=== PATIENT | female | born 1990 ===

== ENCOUNTER 2022-12-09 08:05 | Inpatient (IN) | payer OTHER ==
[2022-12-09] MEDS ORDERED: DINOPROSTONE 10 MG VAGINAL SUPPOSITORY VG ONE (08:41)
[2022-12-09] MEDS ORDERED: BUTORPHANOL TARTRATE 1 MG/ML VIAL IVPUSH PRN (08:42)
[2022-12-09] MEDS ORDERED: PROMETHAZINE HCL 25 MG/1 ML VIAL IVPB ONE (08:42)
[2022-12-09] MEDS ORDERED: ELECTROLYTE-148 SOLN 1,000 ML IV SCH (08:45)
[2022-12-09 10:34] VITALS: BMI 26.4
[2022-12-09] MEDS ORDERED: CITRIC ACID/SODIUM CITRATE 30 ML UNIT-DOSE CUP PO ONE (16:28)
[2022-12-09] MEDS ORDERED: morphine SULFATE/PF 1 MG/2 ML (2cc Syringe - QUVA) ONE (17:11)
[2022-12-09] MEDS ORDERED: IBUPROFEN 800 MG/8 ML IJ IVPB PRN (17:57)
[2022-12-09] MEDS ORDERED: METHYLERGONOVINE MALEATE 0.2 MG/1 ML AMP IM PRN (17:57)
[2022-12-09] MEDS ORDERED: ACETAMINOPHEN 325 MG TABLET (FP) PO PRN (17:57)
[2022-12-09] MEDS ORDERED: morphine SULFATE/PF 1 MG/2 ML (2cc Syringe - QUVA) EP ONE (18:02)
[2022-12-09] MEDS: OXYTOCIN 20 UNITS in 0.9% NS 20 UNIT/1,000 ML INFUS.BAG IV SCH (18:48)
[2022-12-09] MEDS ORDERED: IBUPROFEN 800 MG/8 ML IJ IVPB ONE (18:50)
[2022-12-09] MEDS ORDERED: OXYTOCIN 20 UNITS in 0.9% NS 20 UNIT/1,000 ML INFUS.BAG IV ONE (18:51)
[2022-12-10] MEDS: OXYTOCIN 20 UNITS in 0.9% NS 20 UNIT/1,000 ML INFUS.BAG IV SCH (05:56)
[2022-12-10] MEDS ORDERED: oxyCODONE HCL 5 MG TABLET PO PRN (05:57)
[2022-12-10] MEDS: SIMETHICONE 80 MG TAB.CHEW (FP) PO PRN ×2 (07:15→14:36)
[2022-12-10] MEDS: IBUPROFEN 600 MG TABLET (FP) PO PRN ×2 (07:15→14:36)
[2022-12-10 07:22] LABS: BASO % 0.2 % (0-2.0); EOS % 0.4 % (0-4.5); HEMATOCRIT 29.1 % (32.4-45.2); HEMOGLOBIN 10.4 GM/dL (10.7-15.3); LYMPH % 22.1 % (8-40); MCH 31.3 pg (25.7-33.7); MCHC 35.8 g/dl (32.0-36.0); MEAN CELL VOLUME 87.5 fl (80-96); MEAN PLT VOLUME 7.6 fl (7.5-11.1); NEUT % 70.3 % (42.8-82.8); PLATELET COUNT 186 10^3/uL (134-434); RBC 3.33 M/mm3 (3.60-5.2); RDW 13.7 % (11.6-15.6); WHITE BLOOD COUNT 9.9 K/mm3 (4.0-10.0)
[2022-12-10] MEDS ORDERED: BISACODYL 10 MG SUPP.RECT RC PRN (17:57)
[2022-12-11] MEDS: IBUPROFEN 600 MG TABLET (FP) PO PRN ×2 (06:16→17:47)
[2022-12-11] MEDS: SIMETHICONE 80 MG TAB.CHEW (FP) PO PRN (17:48)
[2022-12-12 06:15] LABS: BASO % 0.3 % (0-2.0); HEMATOCRIT 29.5 % (32.4-45.2); HEMOGLOBIN 10.3 GM/dL (10.7-15.3); LYMPH % 25.9 % (8-40); MCH 30.8 pg (25.7-33.7); MCHC 34.8 g/dl (32.0-36.0); MEAN CELL VOLUME 88.4 fl (80-96); MEAN PLT VOLUME 7.2 fl (7.5-11.1); MONO % 4.8 % (3.8-10.2); PLATELET COUNT 256 10^3/uL (134-434); RBC 3.33 M/mm3 (3.60-5.2); RDW 13.6 % (11.6-15.6); WHITE BLOOD COUNT 11.9 K/mm3 (4.0-10.0)
[2022-12-12] MEDS: SIMETHICONE 80 MG TAB.CHEW (FP) PO PRN (06:20)
[2022-12-12] MEDS: IBUPROFEN 600 MG TABLET (FP) PO PRN (06:20)
[2022-12-12 11:54] VITALS: BP 118/77; PULSE 75; RESP 17; TEMP 98.1
== END 2022-12-12 13:55 | disposition home or self-care (01) | DRG 540 ==
LOC: JLDR 08:05 → J3W 20:05
PROVIDERS: ADMIT Obstetrics & Gynecology; ATTEND Obstetrics & Gynecology
PROC: 10D00Z1 Extraction of Products of Conception, Low, Open Approach (ICD-10-PCS; principal; 2022-12-09)
DX: O24.420 Gestational diabetes mellitus in childbirth, diet controlled (principal); O76 Abnormality in fetal heart rate and rhythm complicating labor and delivery; O48.0 Post-term pregnancy; Z3A.40 40 weeks gestation of pregnancy; Z37.0 Single live birth
CPT/HCPCS: 36415; 59025; 76819-TC; 80048; 82962; 85025; 85610; 85730; 86780; 86850; 86900; 86901; 88307-TC; 94010; C9803-CS; U0003; U0005